=== PATIENT | female | born 1985 | race Two or more races ===

== ENCOUNTER 2018-05-19 08:11 | Emergency (ER) | payer OTHER ==
[~2018-05-19] VITALS: Ht 170.2 cm; Wt 84.4 kg
== END 2018-05-19 14:01 | disposition home or self-care (01) ==
LOC: ER 08:11
DX: N93.8 Other specified abnormal uterine and vaginal bleeding (principal)

== ENCOUNTER 2018-05-19 13:56 | Outpatient (CLI) | payer OTHER | END 2018-05-19 14:00 | disposition home or self-care (01) | LOC: SONOGRAMA 13:56 | DX: E04.2 Nontoxic multinodular goiter (principal); R10.13 Epigastric pain ==